=== PATIENT | male | born 2000 | race Caucasian/White ===

== ENCOUNTER 2022-01-13 05:49 | Emergency (ER) | payer OTHER ==
[~2022-01-13 05:49] MED LIST: AMOXICILLIN500 MG PO
== END 2022-01-13 11:07 | disposition home or self-care (01) ==
LOC: ER1 05:49
DX: S43.005A Unspecified dislocation of left shoulder joint, initial encounter (principal); F17.210 Nicotine dependence, cigarettes, uncomplicated; W04.XXXA Fall while being carried or supported by other persons, initial encounter; Y92.009 Unspecified place in unspecified non-institutional (private) residence as the place of occurrence of the external cause
CPT/HCPCS: 23650; 73020; 73030; 99283; J2704

== ENCOUNTER 2022-01-16 13:52 | Emergency (ER) | payer OTHER | END 2022-01-16 15:10 | disposition left against medical advice (07) | LOC: ER1 13:52 | DX: M25.512 Pain in left shoulder (principal) | CPT/HCPCS: 73030; 99281 ==